=== PATIENT | female | born 1960 | race Caucasian/White ===

== ENCOUNTER 2018-01-04 20:39 | Emergency (ER) | payer MEDICARE, OTHER | END 2018-01-04 22:26 | disposition home or self-care (01) | LOC: MADERS 20:39 | DX: M79.662 Pain in left lower leg (principal); E78.5 Hyperlipidemia, unspecified; I10 Essential (primary) hypertension; F31.9 Bipolar disorder, unspecified; Z79.899 Other long term (current) drug therapy | CPT/HCPCS: 99283 ==